=== PATIENT | male | born 1980 | race Caucasian/White ===

== ENCOUNTER 2024-02-07 08:21 | Inpatient (IN) | payer MEDICAID ==
[~2024-02-07] VITALS: Ht 185.4 cm; Wt 96.2 kg
[2024-02-07] MEDS: SODIUM CHLORIDE 0.9% 1,000 ML IV ONE ×2 (09:02→09:03)
[2024-02-07] MEDS: ONDANSETRON HCL 4MG/2ML INJ IV ONE (09:15)
[2024-02-07] MEDS: LORAZEPAM 2MG/ML INJ IV ONE (09:15)
[2024-02-07 09:21] LABS: CLARITY URINE CLEAR (CLEAR); COLOR URINE YELLOW (YELLOW); GLUCOSE URINE NEGATIVE (NEGATIVE); KETONES URINE NEGATIVE (NEGATIVE); LEUKOCYTE ESTERASE URINE NEGATIVE (NEGATIVE); NITRITE URINE NEGATIVE (NEGATIVE); OCCULT BLOOD URINE NEGATIVE (NEGATIVE); PROTEIN URINE NEGATIVE (NEGATIVE)
[2024-02-07 09:29] LABS: PROTHROMBIN TIME 10.9 sec (9.6-11.0)
[2024-02-07 09:33] LABS: BASOPHILS % 0.7 % (0.0-2.0); CHLORIDE 109 mEq/L (98-107); EOSINOPHILS % 0.6 % (0.0-5.0); HEMATOCRIT. 43.1 % (42.0-52.0); LYMPHOCYTES % 21.1 % (20.0-50.0); MEAN CORPUSCULAR HEMOGLOBIN 28.1 pg (28.0-32.0); MEAN CORPUSCULAR HGB CONC 32.5 g/dL (31.0-37.0); MEAN CORPUSCULAR VOLUME 86.5 fL (80.0-94.0); MONOCYTES % 6.7 % (2.0-8.0); NEUTROPHILS % 70.9 % (40.0-76.0); PLATELET 245 x1000/uL (130-400); POTASSIUM 4.1 mEq/L (3.5-5.1); RED BLOOD CELL COUNT 4.98 mill/uL (4.7-6.1); RED CELL DISTRIBUTION WIDTH 14.6 % (11.6-14.6); SODIUM 138 mEq/L (136-145); WHITE BLOOD COUNT 9.7 x1000/uL (4.5-11.0)
[2024-02-07 09:34] LABS: CARBON DIOXIDE 23 mEq/L (21-32)
[2024-02-07 09:39] LABS: CREATININE 0.6 mg/dL (0.6-1.3); GLUCOSE 97 mg/dL (70-105); UREA NITROGEN BLOOD 11 mg/dL (9-23)
[2024-02-07 09:41] LABS: ALANINE AMINOTRANSFERASE 21 IU/L (10-49); ALBUMIN 4.2 g/dL (3.2-4.8); ASPARTATE AMINOTRANSFERASE 23 IU/L (<34); BILIRUBIN TOTAL 0.3 mg/dL (0.1-1.0); PROTEIN TOTAL 6.7 g/dL (6.0-8.3)
[2024-02-07 09:42] LABS: ETHANOL BLOOD < 10 mg/dL (<10)
[2024-02-07 09:59] LABS: *AMPHETAMINES SCREEN URINE NEGATIVE (NEGATIVE); *BARBITURATES SCREEN URINE PRESUMPTIVE POSITIVE (NEGATIVE); *BENZODIAZEPINES SCREEN URINE PRESUMPTIVE POSITIVE (NEGATIVE); *COCAINE SCREEN URINE NEGATIVE (NEGATIVE); CANNABINOID URINE SCREEN NEGATIVE (NEGATIVE); ECSTASY MDMA SCREEN URINE NEGATIVE (NEGATIVE); METHADONE URINE SCREEN NEGATIVE (NEGATIVE); OPIATES URINE SCREEN NEGATIVE (NEGATIVE); PHENCYCLIDINE URINE SCREEN NEGATIVE (NEGATIVE)
[2024-02-07] MEDS ORDERED: CLONIDINE 0.1MG TABLET PO PRN (15:45)
[2024-02-07] MEDS ORDERED: ACETAMINOPHEN 325MG TABLET PO PRN (15:45)
[2024-02-07] MEDS ORDERED: NITROGLYCERIN 0.4MG TABLET SL SL PRN (15:45)
[2024-02-07] MEDS ORDERED: IPRATROPIUM/ALBUTEROL 0.5-3(2.5)MG/3ML NEB NEB PRN (15:45)
[2024-02-07] MEDS ORDERED: MAGNESIUM/ALUMINUM HYDROXIDE/SIMETHICONE 30ML UDC PO PRN (15:45)
[2024-02-07] MEDS ORDERED: GUAIFENESIN 200MG/10ML SUGAR FREE UDC PO PRN (15:45)
[2024-02-07] MEDS ORDERED: DOCUSATE SODIUM 100MG CAPSULE PO PRN (15:45)
[2024-02-07 16:50] VITALS: BP 123/81; PULSE 75; RESP 18; TEMP 36.61404; O2SAT 97
[2024-02-07 16:51] VITALS: BP 123/81; PULSE 75; RESP 18; TEMP 36.7516
[2024-02-07 16:55] LABS: IRON 63 ug/dL (65-175)
[2024-02-07 16:57] LABS: TOTAL IRON BINDING CAPACITY 303 ug/dl (250-425)
[2024-02-07 17:00] LABS: THYROID STIMULATING HORMONE 2.15 uIU/mL (0.55-4.78)
[2024-02-07 17:01] LABS: FOLIC ACID (FOLATE) SERUM > 20.00 ng/mL (>5.38)
[2024-02-07] MEDS ORDERED: KEPP500 PO (17:08)
[2024-02-07 17:09] LABS: VITAMIN B12 SERUM 547 pg/mL (211-911)
[2024-02-07] MEDS: ENOXAPARIN 40MG/0.4ML SYR SUBCUT SCH (17:27)
[2024-02-07] MEDS: MVI, ADULT NO.1 10 ML, FOLIC ACID 1 MG, THIAMINE HCL 100 MG in SODIUM CHLORIDE 0.9% 1,0... IV SCH (17:27)
[2024-02-07 20:00] VITALS: BP 156/87; PULSE 96; RESP 18; TEMP 38.00304; O2SAT 97
[2024-02-07] MEDS: LEVETIRACETAM 500MG TABLET PO SCH (21:56)
[2024-02-07] MEDS: FAMOTIDINE 20MG TABLET PO SCH (21:56)
[2024-02-07] MEDS ORDERED: CHLORDIAZEPOXIDE 25MG CAPSULE PO SCH (22:00)
[2024-02-07] MEDS: CHLORDIAZEPOXIDE 25MG CAPSULE PO SCH (22:14)
[2024-02-08] VITALS (8 sets, daily range): BP systolic 113–131; BP diastolic 70–87; PULSE 68–70; RESP 18–20; TEMP 35.89176–37.89192; O2SAT 70–100
[2024-02-08] MEDS: ACETAMINOPHEN 325MG TABLET PO PRN (01:19)
[2024-02-08] MEDS: ONDANSETRON HCL 4MG/2ML INJ IV PRN (02:02)
[2024-02-08] MEDS: PIPERACILLIN/TAZO 3.375G/50ML 50 ML IV SCH (02:25)
[2024-02-08 08:17] LABS: CHLORIDE 109 mEq/L (98-107); SODIUM 138 mEq/L (136-145)
[2024-02-08 08:18] LABS: CALCIUM 8.6 mg/dL (8.7-10.4); CARBON DIOXIDE 24 mEq/L (21-32)
[2024-02-08 08:23] LABS: CREATININE 0.7 mg/dL (0.6-1.3); GLUCOSE 91 mg/dL (70-105)
[2024-02-08 08:24] LABS: UREA NITROGEN BLOOD 9 mg/dL (9-23)
[2024-02-08 08:25] LABS: ALANINE AMINOTRANSFERASE 23 IU/L (10-49); ALBUMIN 3.7 g/dL (3.2-4.8); ASPARTATE AMINOTRANSFERASE 24 IU/L (<34)
[2024-02-08 08:26] LABS: BILIRUBIN TOTAL 0.4 mg/dL (0.1-1.0); PHOSPHORUS 3.2 mg/dL (2.5-4.9); PROTEIN TOTAL 6.4 g/dL (6.0-8.3)
[2024-02-08 09:28] LABS: BASOPHILS % 0.5 % (0.0-2.0); EOSINOPHILS % 1.2 % (0.0-5.0); HEMATOCRIT. 39.6 % (42.0-52.0); HEMOGLOBIN. 13.2 g/dL (14.0-18.0); LYMPHOCYTES % 36.4 % (20.0-50.0); MEAN CORPUSCULAR HEMOGLOBIN 28.8 pg (28.0-32.0); MEAN CORPUSCULAR HGB CONC 33.4 g/dL (31.0-37.0); MEAN CORPUSCULAR VOLUME 86.2 fL (80.0-94.0); MEAN PLATELET VOLUME 8.8 fl (7.4-10.4); NEUTROPHILS % 51.9 % (40.0-76.0); PLATELET 225 x1000/uL (130-400); RED BLOOD CELL COUNT 4.59 mill/uL (4.7-6.1); RED CELL DISTRIBUTION WIDTH 14.6 % (11.6-14.6); WHITE BLOOD COUNT 5.9 x1000/uL (4.5-11.0)
[2024-02-09] VITALS: BP 117/84; PULSE 68; RESP 20; TEMP 36.44736; O2SAT 99
[2024-02-09 08:00] VITALS: BP 115/79; PULSE 68; RESP 18; TEMP 36.50292; O2SAT 99
[2024-02-09 10:01] VITALS: BP 115/79; PULSE 68; TEMP 97.7; O2SAT 99
== END 2024-02-09 10:50 | disposition home or self-care (01) | DRG 775 ==
LOC: ER 08:34 → EDBEDREQ 11:26 → EDBEDREQTM 11:26 → 8WST 16:30
PROVIDERS: ADMIT Internal Medicine; ATTEND Internal Medicine
DX: F10.239 Alcohol dependence with withdrawal, unspecified (principal); F15.90 Other stimulant use, unspecified, uncomplicated; G40.909 Epilepsy, unspecified, not intractable, without status epilepticus; F17.210 Nicotine dependence, cigarettes, uncomplicated; Z88.8 Allergy status to other drugs, medicaments and biological substances; Z79.899 Other long term (current) drug therapy
CPT/HCPCS: 36415; 71045; 80053; 80305; 80320; 81003; 82607; 82746; 83036; 83540; 83550; 83735; 84100; 84145; 84443; 85025; 93970; 99291; J1650; J2060; J2405; J2543; J3411; J3490; J7030; G0480